=== PATIENT | female | born 1990 | race Caucasian/White ===

== ENCOUNTER 2017-06-09 12:03 | Emergency (ER) | payer SELFPAY ==
[~2017-06-09] VITALS: Ht 172.7 cm; Wt 70.0 kg
[~2017-06-09 12:03] MED LIST: ENOX40P SQ; HYDR10SO PO; Z.0.BCPILL PO; Z.0.WALKERFRONT
[2017-06-09 12:04] VITALS: BP 131/89; PULSE 78; RESP 20; TEMP 98.7; O2SAT 100
--- NOTE | 2017-06-09 12:18 | PD ---
Physical Exam Time Seen by Provider: 12:17 Narrative 27yo F c/o R foot pain after injuring it at [employer] on Tuesday. Has not been previously evaluated for injury. Has Cam boot from previous L ankle fracture. Patient seen in triage. VS reviewed. Awaiting be placement. Data Data Last Documented VS Vital Signs Date Time Temp Pulse Resp B/P (MAP) Pulse Ox O2 Delivery O2 Flow Rate FiO2 06/09/17 12:04 98.7 78 20 131/89 (103) 100 Room Air MDM Supervised Visit with LYNDON: Svetlana Potts Jun 09, 2017 12:18
--- NOTE | 2017-06-09 13:05 | RADRPT ---
EXAM DATE/TIME: 06/09/2017 12:37 [facility] COMPARISON: No previous studies available for comparison. INDICATIONS : Right foot pain, jumping on trampoline. MEDICAL HISTORY : None. SURGICAL HISTORY : None. ENCOUNTER: Initial ACUITY: 3 days PAIN SCORE: 10/10 LOCATION: Right lateral foot FINDINGS: Three view examination of the right foot demonstrates no soft tissue swelling, dislocation, or fractu re. The tarsal bones appear intact. The interphalangeal and metatarsophalangeal joints are intact. The calcaneus is intact. Bony mineralization is normal. CONCLUSION: Negative trauma study. Donnie Dale MD on June 09, 2017 at 13:02 Board Certified Radiologist. This report was verified electronically.
--- NOTE | 2017-06-09 13:05 | RADRPT ---
EXAM DATE/TIME: 06/09/2017 12:38 [facility] COMPARISON: FOOT RIGHT COMPLETE ([id number]), June 09, 2017, 12:37. INDICATIONS : Right ankle pain, jumping on trampoline. MEDICAL HISTORY : None. SURGICAL HISTORY : None. ENCOUNTER: Initial ACUITY: 3 days PAIN SCORE: 10/10 LOCATION: Right lateral ankle FINDINGS: Three view exam was performed of the right ankle. The bony structures are in normal alignment. No e vidence of fracture, dislocation, or soft tissue swelling. The ankle mortise is intact. No radiopaq ue foreign bodies are seen. Bony mineralization is normal. CONCLUSION: Negative trauma study. Donnie Dale MD on June 09, 2017 at 13:03 Board Certified Radiologist. This report was verified electronically.
--- NOTE | 2017-06-09 13:29 | PD ---
HPI Chief Complaint: Injury Time Seen by Provider: 13:21 Travel History International Travel<30 days: No Contact w/Intl Traveler<30days: No Traveled to known affect area: No History of Present Illness HPI 27-year-old female presents the emergency department with injury to the right ankle/foot after landing wrong at local [employer] [place]. This happened 2 days ago. Patient states he continues to click when she walks. She has mild to moderate pain. She is wearing a cam walker boot that she had from previous left ankle surgery. Her pain is about a 4 out of 10 with splinting. X-rays ordered in triage. She has no known drug allergies. PFSH Past Medical History ?: Not Past Surgical History Pacemaker: No Social History Alcohol Use: Yes (occ) Tobacco Use: No Substance Use: No Allergies-Medications (Allergen,Severity, Reaction): Coded Allergies: No Known Allergies (Unverified , 07/01/16) Reported Meds & Prescriptions Reported Meds & Active Scripts Active Walker Front Wheel (Walkerfront) Device 1 Unit Lovenox (Enoxaparin Sodium) 40 Mg/0.4 Ml Inj 40 Mg SQ Q24H Hydrocodone/Acetaminophen 10 mg/325 mg 1 Tab 1 Tab PO Q4H PRN Reported Control Pills (Miscellaneous Medication) Tab 1 Tab PO DAILY Review of Systems Except as stated in HPI: all other systems reviewed are Neg General / Constitutional: No: Fever Eyes: No: Visual changes HENT: No: Headaches Cardiovascular: No: Chest Pain or Discomfort Respiratory: No: Shortness of Breath Gastrointestinal: No: Abdominal Pain Genitourinary: No: Dysuria Musculoskeletal: Positive: Arthralgias, Limited ROM, Pain Skin: No Rash Neurologic: No: Weakness Psychiatric: No: Depression Endocrine: No: Polydipsia Hematologic/Lymphatic: No: Easy Bruising Physical Exam Narrative GENERAL: Patient appears no acute distress. SKIN: Warm and dry. Normal color. Normal turgor. HEAD: Atraumatic. Normocephalic. EYES: Pupils equal and round. No scleral icterus. No injection or drainage. ENT: No nasal bleeding or discharge. Mucous membranes pink and moist. NECK: Trachea midline. Supple nontender. CARDIOVASCULAR: Regular rate and rhythm. RESPIRATORY: No accessory muscle use. Clear to auscultation. Breath sounds equal bilaterally. MUSCULOSKELETAL: Extremities without clubbing, cyanosis, or edema. No obvious deformities. Patient has mild to moderate tenderness along the lateral right malleolus and proximal dorsal right foot. NEUROLOGICAL: Awake and alert. No obvious cranial nerve deficits. Motor grossly within normal limits. Five out of 5 muscle strength in the arms and legs. Normal speech. PSYCHIATRIC: Appropriate mood and affect; insight and judgment normal. Data Data Last Documented VS Vital Signs Date Time Temp Pulse Resp B/P (MAP) Pulse Ox O2 Delivery O2 Flow Rate FiO2 06/09/17 12:04 98.7 78 20 131/89 (103) 100 Room Air Orders Orders Ankle, Complete ([id number]) (06/09/17 12:18) Foot, Complete ([id number]) (06/09/17 12:18) [facility] Medical Decision Making Medical Screen Exam Complete: Yes Emergency Medical Condition: Yes Differential Diagnosis Right ankle sprain. Right foot sprain. Possible fracture. Narrative Course X-ray showed no acute fracture dislocation per radiologist. Patient can wear the orthopedic boot as needed for comfort. Patient use ice and Tylenol and ibuprofen as needed. Patient follow up with symptoms continue or worsen as discussed. Diagnosis Primary Impression: Right ankle sprain Qualified Codes: S93.401A - Sprain of unspecified ligament of right ankle, initial encounter Referrals: Primary Care Physician Patient Instructions: Ankle Sprain (ED), Ankle Sprain Exercises (GEN), General Instructions Additional Instructions: X-ray showed no acute fracture dislocation per radiologist. Patient can wear the orthopedic boot as needed for comfort. Patient use ice and Tylenol and ibuprofen as needed. Patient follow up with symptoms continue or worsen as discussed. Disposition: 01 DISCHARGE HOME Condition: Stable Camden Lund Jun 09, 2017 13:29
== END 2017-06-09 13:52 | disposition home or self-care (01) ==
LOC: NEPK 12:03
DX: S93.401A Sprain of unspecified ligament of right ankle, initial encounter (principal); Z79.899 Other long term (current) drug therapy; Y93.44 Activity, trampolining
CPT/HCPCS: 73610; 73630; 99283